=== PATIENT | male | born 1990 | race Caucasian/White ===

== ENCOUNTER 2016-10-02 12:45 | Emergency (ER) | payer OTHER ==
[~2016-10-02] VITALS: Ht 175.3 cm; Wt 86.0 kg
[2016-10-02 12:47] VITALS: Ht 175.3 cm; Wt 86.0 kg
[2016-10-02] MEDS ORDERED: SODIUM CHLORIDE 0.9% 1000ML 1,000 ML IV STA (13:32)
--- NOTE | 2016-10-02 13:36 | EMERGENCY ROOM VISIT NOTE ---
History First contact with patient: 13:20 Chief Complaint: THROAT PAIN/INJURY Stated Complaint: SWOLLEN THROAT, PAINFUL SWOLLOWING, EAR PAIN History of Present Illness The patient is a 26 year old male who presents to the Emergency Room with complaints of sore throat. The patient has a history of peritonsillar abscess 2.5 years ago. The patient developed tonsillitis and sore throat on Wednesday. He saw Dr. Pardo on Wednesday. He was started on clindamycin. The patient presents to the emergency department because his symptoms significantly worsened yesterday. He reports drooling, difficulty opening his mouth and increased in pain. He rates his discomfort as 3/10. He denies any fevers. He denies any pain in his chest or trouble breathing. He denies any abdominal pain, nausea or vomiting. Review of Systems A 10 system review of systems was completed with positives and pertinent negatives listed in the HPI. Past Medical/Surgical History Medical Problems: (1) Peritonsillar abscess Social History Smoking Status: Never Smoker Marital Status: single Occupation Status: [employer] student Current/Historical Medications Scheduled Cephalexin Monohydrate (Keflex), 500 MG PO QID Clindamycin Hcl (Clindamycin Hcl), 300 MG PO BID Prednisone (Prednisone), 0 PO DAILY Scheduled PRN Acetaminophen (Tylenol), 650 MG PO UD PRN for [place] Hydrocodone-Acetaminophen (Hydrocodone/Acetami 7.5/325MG 15ML), 10 ML PO Q4 PRN for Pain Allergies Coded Allergies: Penicillins (Unverified Allergy, Intermediate, HIVES, 10/02/16) Uncoded Allergies: PENICILLIN (Allergy, Mild, ., 10/02/16) Physical Exam Vital Signs Date Time Temp Pulse Resp B/P (MAP) Pulse Ox O2 Delivery O2 Flow Rate FiO2 10/02/16 16:12 37.2 81 18 109/70 94 10/02/16 16:02 81 18 109/70 94 Room Air 10/02/16 14:55 83 16 119/66 95 Room Air 10/02/16 12:47 37.2 108 20 145/77 98 Room Air Physical Exam VITALS: Vitals are noted on the nurse's note and reviewed by myself. Vital signs stable. The patient is afebrile. GENERAL: This is a 26-year-old male, in no acute distress, nondiaphoretic, well- developed well-nourished. SKIN: The skin was without rashes, erythema, edema, or bruising. There is no tenting of the skin. Capillary reflex less than 2 seconds. HEAD: Normocephalic atraumatic. EARS: External auditory canals clear, tympanic membranes pearly aragon without erythema or effusion bilaterally. EYES: Pupils equal round and reactive to light and accommodation. Conjunctivae without injection, sclerae without icterus. Extraocular movements intact. NOSE: Patent, turbinates without inflammation or discharge. MOUTH: Mucous membranes moist. There is hot potato voice, trismus, soft palate involvement, tonsillar enlargement with erythema. The uvula is deviated. NECK: Supple without nuchal rigidity. No lymphadenopathy. No thyromegaly. Cervical spine is nontender. No JVD. HEART: Regular rate and rhythm without murmurs gallops or rubs. LUNGS: Clear to auscultation bilaterally without wheezes, rales or rhonchi. Strength No retractions or accessory muscle use. MUSCULOSKELETAL: No muscle atrophy, erythema, or edema noted. Full range of motion in all extremities. Normal gait. Strength 5/5 throughout. NEURO: Patient was alert and oriented to person place and time. No focal neurological deficits. Medical Decision & Procedures Laboratory Results 10/02/16 13:40 Red Blood Count 4.85, Mean Corpuscular Volume 87.8, Mean Corpuscular Hemoglobin 31.1, Mean Corpuscular Hemoglobin Concent 35.4, Mean Platelet Volume 10.7, Neutrophils (%) (Auto) 70.6, Lymphocytes (%) (Auto) 15.2, Monocytes (%) (Auto) 13.1, Eosinophils (%) (Auto) 0.6, Basophils (%) (Auto) 0.3, Neutrophils # (Auto ) 7.88, Lymphocytes # (Auto) 1.69, Monocytes # (Auto) 1.46, Eosinophils # (Auto ) 0.07, Basophils # (Auto) 0.03 10/02/16 13:40 Test 10/02/16 13:40 White Blood Count 11.15 K/uL (4.8-10.8) Red Blood Count 4.85 M/uL (4.7-6.1) Hemoglobin 15.1 g/dL (14.0-18.0) Hematocrit 42.6 % (42-52) Mean Corpuscular Volume 87.8 fL (80-100) Mean Corpuscular Hemoglobin 31.1 pg (25-34) Mean Corpuscular Hemoglobin Concent 35.4 g/dl (32-36) Platelet Count 156 K/uL (130-400) Mean Platelet Volume 10.7 fL (7.4-10.4) Neutrophils (%) (Auto) 70.6 % Lymphocytes (%) (Auto) 15.2 % Monocytes (%) (Auto) 13.1 % Eosinophils (%) (Auto) 0.6 % Basophils (%) (Auto) 0.3 % Neutrophils # (Auto) 7.88 K/uL (1.4-6.5) Lymphocytes # (Auto) 1.69 K/uL (1.2-3.4) Monocytes # (Auto) 1.46 K/uL (0.11-0.59) Eosinophils # (Auto) 0.07 K/uL (0-0.5) Basophils # (Auto) 0.03 K/uL (0-0.2) RDW Standard Deviation 37.8 fL (36.4-46.3) RDW Coefficient of Variation 11.8 % (11.5-14.5) Immature Granulocyte % (Auto) 0.2 % Immature Granulocyte # (Auto) 0.02 K/uL (0.00-0.02) Anion Gap 7.0 mmol/L (3-11) Est Creatinine Clear Calc Drug Dose 102.3 ml/min Estimated GFR () 96.8 Estimated GFR (Non- 83.5 BUN/Creatinine Ratio 9.4 (10-20) Calcium Level 9.2 mg/dl (8.5-10.1) Total Bilirubin 1.4 mg/dl (0.2-1) Aspartate Amino Transf (AST/SGOT) 16 U/L (15-37) Alanine Aminotransferase (ALT/SGPT) 20 U/L (12-78) Alkaline Phosphatase 48 U/L (45-117) Total Protein 8.2 gm/dl (6.4-8.2) Albumin 3.7 gm/dl (3.4-5.0) Globulin 4.5 gm/dl (2.5-4.0) Albumin/Globulin Ratio 0.8 (0.9-2) Monoscreen POS (NEG) Medications Administered Medications (Trade) Dose Ordered Sig/Farhat Route Start Time Stop Time Status Last Admin Dose Admin Sodium Chloride 1,000 ml @ 999 mls/hr Q1H1M STAT IV 10/02/16 13:32 10/02/16 14:32 DC 10/02/16 13:50 999 MLS/HR Dexamethasone Sodium Phosphate (Decadron Inj) 10 mg NOW ONCE IV 10/02/16 13:45 10/02/16 13:46 DC 10/02/16 13:48 10 MG Clindamycin Phosphate 600 mg/ Dextrose 54 ml @ 108 mls/hr 1415 ONCE IV 10/02/16 14:15 10/02/16 14:44 DC 10/02/16 14:13 108 MLS/HR Cefazolin Sodium (Ancef 1000mg/55 ml D5W) 2,000 mg NOW STAT IV 10/02/16 14:46 10/02/16 14:47 DC 10/02/16 15:18 2,000 MG ED Course The patient was seen and examined. Previous visits were reviewed. The patient does not have a fever. He does have a mild leukocytosis of 11.51. He does not have any significant electrolyte abnormalities. Mononucleosis was positive. The patient was hydrated with normal saline He was given 10 mg IV Decadron He was given 600 mg IV clindamycin He declined pain medication and stated he had to drive home The patient presents to the emergency department with tonsillitis refractory to clindamycin. He does have a hot potato voice, drooling, trismus, soft palate involvement. I do suspect peritonsillar abscess. The patient has seen Dr. Pardo in the past. I spoke with him and he evaluated the patient in the emergency department and was able to drain the peritonsillar abscess. He recommends IV antibiotics and Keflex as well as Lortab elixir. The patient was given prescriptions for Lortab elixir, Keflex and prednisone. He should follow up with otolaryngology for further evaluation and management. He will likely need tonsillectomy. He should return with any worsening symptoms , trouble breathing, worsening swelling or generalized worsening symptoms. The case was discussed with Dr. Schmidt who agrees with the assessment and treatment plan. Medical Decision The differential diagnosis includes tonsillitis, tonsillar cellulitis, peritonsillar abscess, mononucleosis, among others [place] Drug Monitoring Program Search Results: patient reviewed within database, no issues identified Impression Primary Impression: Peritonsillar abscess Additional Impression: Mononucleosis Departure Information Dispostion Home / Self-Care Condition GOOD Prescriptions Prednisone (Prednisone) 20 Mg Tab 0 PO DAILY, #18 TAB 3 DAILY FOR 3 DAYS, THEN 2 DAILY FOR 3 DAYS, THEN 1 DAILY FOR 3 DAYS. Prov: Thelma Poe PA-C 10/02/16 Hydrocodone-Acetaminophen (HYDROCODONE/ACETAMI 7.5/325MG 15ML) 1 Rebecca Rebecca 10 ML PO Q4 Y for Pain for 3 Days, #180 ML Prov: Thelma Poe PA-C 10/02/16 Cephalexin Monohydrate (Keflex) 500 Mg Cap 500 MG PO QID for 10 Days, #40 CAP Prov: Thelma Poe PA-C 10/02/16 Referrals Krysten Pardo M.D. (PCP) Patient Instructions ED Peritonsillar Abscess, [facility] Additional Instructions Motrin 600 mg every 6-8 hours for moderate pain [place] 10 mL every 4-6 hours if needed for worse pain. Do not drink or drive while taking [place] and do not take with Tylenol. Prednisone as prescribed for swelling/inflammation No contact sports Keflex as prescribed, until finished Follow up with otolaryngology for further evaluation, management and probable tonsillectomy Return with any fevers or worsening symptoms Problem Qualifiers
[2016-10-02] MEDS ORDERED: DEXAMETHASONE SOD INJ 10 MG/ML VIAL IV ONE (13:45)
[2016-10-02] MEDS ORDERED: CLINDAMYCIN 600 MG/54 ML D5W IV ONE (13:45)
[2016-10-02 13:51] LABS: BASO % 0.3 %; BASO ABS # 0.03 K/uL (0-0.2); COMPLETE YES; EOS % 0.6 %; HEMATOCRIT 42.6 % (42-52); IG% 0.2 %; LYMPH % 15.2 %; LYMPH ABS # 1.69 K/uL (1.2-3.4); MEAN CELL VOLUME 87.8 fL (80-100); MEAN CORPUSCULAR HEMOGLOBIN 31.1 pg (25-34); MEAN CORPUSCULAR HGB CONC 35.4 g/dl (32-36); MEAN PLATELET VOLUME 10.7 fL (7.4-10.4); MONO % 13.1 %; NEUT % 70.6 %; PLATELET COUNT 156 K/uL (130-400); RED BLOOD COUNT 4.85 M/uL (4.7-6.1); WHITE BLOOD COUNT 11.15 K/uL (4.8-10.8)
[2016-10-02] MEDS ORDERED: CLIN300C10 PO (13:58)
[2016-10-02] MEDS ORDERED: ACET-1311 PO (13:58)
[2016-10-02] MEDS ORDERED: CLINDAMYCIN IV 600 MG in DEXTROSE 5% 50ML 50 ML IV ONE (14:15)
[2016-10-02] MEDS ORDERED: LIDOCAINE/EPINEPHRINE 1% 20 ML VIAL ONE (14:18)
--- NOTE | 2016-10-02 14:42 | [facility] Operative Report ---
Operative Report Operative Date Oct 02, 2016. Pre-Operative Diagnosis right peritonsillar abcess Post-Operative Diagnosis same Procedure(s) Performed I and D Surgeon Edvin Estimated Blood Loss 5 cc. Findings 5 cc. 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 with epi., I opened abcess with 11 blade and tonsillar hemostat, suctioned clean I attest to the content of the Intraoperative Record and any orders documented therein. Any exceptions are noted below.
[2016-10-02 14:45] LABS: BUN/CREATININE RATIO 9.4 (10-20); CREATININE 1.2 mg/dl (0.60-1.40); POTASSIUM 4.1 mmol/L (3.5-5.1)
[2016-10-02 14:46] LABS: CALCIUM 9.2 mg/dl (8.5-10.1)
[2016-10-02] MEDS ORDERED: CEFAZOLIN SOD 1000MG/55 ML D5W IV STA (14:46)
[2016-10-02 14:48] LABS: ALB/GLOB RATIO 0.8 (0.9-2)
[2016-10-02] MEDS ORDERED: CEPH500C PO (15:11)
[2016-10-02] MEDS ORDERED: HYDR1SOL10 PO (15:11)
[2016-10-02] MEDS ORDERED: PRED20TA PO (15:23)
[2016-10-02 16:12] VITALS: BP 109/70; PULSE 81; TEMP 37.2; O2SAT 94
[2016-10-12] MEDS ORDERED: CEPH500C2 PO (14:52)
[2016-10-15] MEDS ORDERED: HYDR1SOL10 PO (08:15)
[2016-10-15] MEDS ORDERED: OXYC-57 PO (08:15)
== END 2016-10-02 16:13 | disposition home or self-care (01) ==
LOC: C.EDB 12:46 → C.EDA 16:13
DX: J36 Peritonsillar abscess (principal); B27.90 Infectious mononucleosis, unspecified without complication

== ENCOUNTER → 2016-10-15 | Day surgery (SDC) | payer OTHER ==
[2016-10-12 14:52] VITALS: Ht 175.3 cm; Wt 88.6 kg
--- NOTE | 2016-10-14 18:57 | History and Physical: Surg Cnt ---
History & Physical Date Oct 14, 2016. Chief Complaint abcessed tonsils History of Present Illness The patient is a 26 year old male with complaints of 2nd episode right peritonsillar abcess Past Medical/Surgical History Medical Problems: (1) Peritonsillar abscess Additional History Hepatic Disease: No Endocrine Disorder: No Kidney Disease: No Hypertension: No Heart Disease: No Bleeding Tendencies: No Infectious Diseases: No Allergies Coded Allergies: Penicillins (Verified Allergy, Intermediate, HIVES, 10/13/16) Home Medications Scheduled Cephalexin Monohydrate (Keflex), 500 MG PO QID Physical Examination Skin: warm/dry, no rash Eyes: normal inspection, EOMI, sclerae normal ENT: normal ENT inspection, pharynx normal Head: normocephalic, atraumatic Neck: supple, no adenopathy, trachea midline Respiratory/Chest: lungs clear, normal breath sounds, no respiratory distress Cardiovascular: regular rate, rhythm, no edema, no murmur Abdomen / GI: normal bowel sounds, non tender Back: normal inspection Extremities: normal inspection, normal range of motion Neurologic/Psych: no motor/sensory deficits, alert, normal reflexes, oriented x 3 Diagnosis chronic tonsillitis Plan of Treatment adenotonsillectomy
[~2016-10-15] VITALS: Ht 175.3 cm; Wt 88.6 kg
[~2016-10-15] MED LIST: ACETAMINOPHEN/HYDROCODONE ELIX 15 ML/CUP UDP PO PRN; ATROPINE SULFATE 0.1 MG/ML 5ML SYR IV PRN; BUPIVACAINE/EPINEPHRINE 0.5% MPF 1:200,000 10 ML VIAL ONE; CEPH500C2 PO; DEXAMETHASONE SOD INJ 4 MG/ML VIAL ONE; EpHEDrine SULFATE INJ 50 MG/ML AMP IV PRN; EpHEDrine SULFATE INJ 50 MG/ML AMP ONE; FENTANYL CITRATE INJ 50 MCG/1 ML 2 ML VIAL IV PRN; FENTANYL CITRATE INJ 50 MCG/1 ML 2 ML VIAL ONE; GLYCOPYRROLATE INJ 0.2 MG/ML VIAL ONE; HYDR1SOL10 PO; HYDROmorphone INJ 1 MG/ML SYR IV PRN; LACTATED RINGER'S 1000ML 1,000 ML IV SCH; LIDOCAINE HCL 2% 2 ML VIAL (20MG/ML) ONE; MIDAZOLAM HCL 1 MG/ML 2ML VIAL ONE; NEOSTIGMINE METHYLSULFATE 5 MG/5 ML SYR ONE; ONDANSETRON INJ 2 MG/ML 2 ML VIAL IV PRN; ONDANSETRON INJ 2 MG/ML 2 ML VIAL ONE; OXYC-57 PO; PHENYLEPHRINE HCL INJ 10 MG/ML VIAL ONE; PROPOFOL IV EMULSION 10 MG/ML 20 ML VIAL IV ONE; SODIUM CHLORIDE 0.9% 1000ML 1,000 ML IV SCH; SUCCINYLCHOLINE CHLORIDE 20 MG/ML 10 ML VIAL IV ONE
--- NOTE | 2016-10-15 08:16 | Discharge Instructions-SurgCtr ---
Discharge Instructions Date of Service Oct 15, 2016. Visit Reason for Visit: Chronic Tonsillitis Discharge Discharge Diagnosis / Problem: same Discharge Goals Goal(s): Improve disease control Activity Recommendations Activity Limitations: per Instructions/Follow-up section Anesthesia . Post Anesthesia Instructions: If you have had General Anesthesia or IV Sedation: * Do not drive today. * Resume driving when surgeon permits. * Do not make important decisions or sign legal documents today. * Call surgeon for: 1. Temperature elevations greater than 101 degrees F. 2. Uncontrollable pain. 3. Excessive bleeding. 4. Persistent nausea and vomiting. 5. Medication intolerance (nausea, vomiting or rash). * For nausea and vomiting use only clear liquids such as: tea, soda, bouillon until nausea subsides, then gradually increase diet as tolerated. * If you have any concerns or questions, call your surgeon's office. If physician is unavailable and it is an emergency, call 911 or go to the nearest emergency room. . Instructions / Follow-Up Instructions / Follow-Up ACTIVITY RECOMMENDATIONS: * During the first few days, activities should be limited. * Stay indoors for several days. * After 48 hours, activity can gradually be increased to normal activity. RETURN TO SCHOOL/WORK: * Return to school or work in one week. * No physical education for two weeks. OVER THE COUNTER MEDICATIONS: * You may use Tylenol * Avoid aspirin or aspirin containing products, e.g. as they may increase bleeding. SPECIAL CARE INSTRUCTIONS: * Avoid coughing or clearing the throat. * Do not use a straw. * A sore throat is expected frequently accompanied by pain radiating to the ears. This is normal. * Expect bad breath until "scabs" are healed. * Notify the doctor if bleeding occurs, vomiting, temperature greater than 101 degrees Fahrenheit. Call or cell phone: . * If bleeding occurs, it is usually in the first 24 hours or after the 5th day. If unable to reach the doctor, go to the nearest Emergency Department. Special Diet: * Fluids are very important and should be encouraged to maintain adequate hydration. * To maintain nutrition, eat soft foods and after 48 hours the consistency of foods can be increased. Examples are jello, soup, pasta, ice cream and mashed foods. FOLLOW UP VISIT: Follow-up visit with Dr. Pardo in 2 weeks. Please call to schedule if not already scheduled. Diet Recommendations Home Diet: special diet Diet Texture: Mechanical Soft (ground) Pending Studies Studies pending at discharge: no Medical Emergencies . Who to Call and When: Medical Emergencies: If at any time you feel your situation is an emergency, please call 911 immediately. . Non-Emergent Contact Non-Emergency issues call your: Primary Care Provider . . "Provider Documentation" section prepared by Krysten Pardo. . [place] Drug Monitoring Program Search Results: no issues identified
--- NOTE | 2016-10-15 08:17 | History & Physical Bridge Note ---
H&P Re-Evaluation Bridge Note: I have examined the patient, reviewed the History & Physical and in the interval since the performance of the History & Physical I have noted the following changes of clinical significance: No changes noted
--- NOTE | 2016-10-15 09:19 | [facility] Operative Report ---
Operative Report Operative Date Oct 15, 2016. Pre-Operative Diagnosis Abcessed Tonsils Post-Operative Diagnosis Same Procedure(s) Performed Tonsillectomy And Adenoidectomy Surgeon Dr. 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 Right Tonsil B. Left Tonsil Anesthesia Gen. endotracheal Complication(s) None Disposition Recovery Room / PACU Implants None Indications 26-year-old with second episode of right peritonsillar abscess Description of Procedure The patient was brought to the operating room and placed in the supine position. General endotracheal anesthesia was induced. The soft palate was retracted using the red Sandhu catheter after placing the mouth gag. Adenoidectomy was performed using the Coblation device. The peritonsillar area was injected with 0.5% Sensorcaine with 1-200,000 strength epinephrine. Tonsillectomies were performed using the Coblation device. Hemostasis was controlled using the Coblation device. The pharynx was irrigated clean with saline the patient tolerated procedure well was taken to the recovery area in satisfactory condition. I attest to the content of the Intraoperative Record and any orders documented therein. Any exceptions are noted below.
--- NOTE | 2016-10-15 10:04 | Anesthesia Progress Nt - [facility] ---
Anesthesia Post Op Note Date & Time Oct 15, 2016 at 10:03 Vital Signs Pain Intensity: 1 Vital Signs Past 12 Hours Date Time Temp Pulse Resp B/P (MAP) Pulse Ox O2 Delivery O2 Flow Rate FiO2 10/15/16 09:38 36.6 89 12 127/82 98 Room Air 10/15/16 09:36 88 4 10/15/16 09:36 88 4 127/82 97 10/15/16 09:31 100 14 10/15/16 09:31 102 14 144/81 97 10/15/16 09:30 97 10 10/15/16 09:30 92 10 98 10/15/16 09:26 140/78 10/15/16 09:25 103 10 10/15/16 09:25 103 10 99 10/15/16 09:21 150/83 10/15/16 09:20 113 14 100 10/15/16 09:20 114 14 10/15/16 09:16 147/82 10/15/16 09:15 129 14 10/15/16 09:15 130 14 100 10/15/16 09:13 146/88 10/15/16 09:11 126/107 10/15/16 09:10 36.8 134 16 126/107 100 Humidified Oxygen 6 Diffusion Mask 10/15/16 07:28 36.8 85 20 116/68 (84) 100 Room Air Notes Mental Status: alert / awake / arousable, participated in evaluation Pt Amnestic to Procedure: Yes Nausea / Vomiting: adequately controlled Pain: adequately controlled Airway Patency, RR, SpO2: stable & adequate BP & HR: stable & adequate Hydration State: stable & adequate Anesthetic Complications: no major complications apparent
[2016-10-15 10:24] VITALS: BP 123/72; PULSE 77; O2SAT 98
== END | disposition home or self-care (01) ==
LOC: X.SURG 07:10
PROVIDERS: ATTEND Otolaryngology
DX: J35.1 Hypertrophy of tonsils (principal)